=== PATIENT | male | born 1975 | race Caucasian/White ===

== ENCOUNTER 2018-11-26 01:56 | Observation (INO) ==
[2018-11-26] MEDS ORDERED: Ondansetron 4 MG/2 ML VIAL IVP PRN ×2 (04:48→16:53)
[2018-11-26] MEDS: *HR* FentaNYL (PF) 100 MCG/2 ML VIAL IVP PRN ×3 (05:05→13:11)
[2018-11-26] MEDS: 0.9 % Sodium Chloride 1,000 ML IVC SCH ×3 (05:06→18:14)
[2018-11-26] MEDS ORDERED: Piperacillin/Tazobactam 3.375 GM in 0.9 % Sodium Chloride Mini Bag 100 ML IVPB SCH (08:00)
--- NOTE | 2018-11-26 08:43 | Acute Care Surgery H&P ---
Date of Encounter: 11/26/18 Time of Encounter: 08:41 Assessment and Plan (1) Acute appendicitis Current Visit: Yes Status: Acute The assessment and plan as outlined above was discussed with the patient and/or family members who expressed understanding and agreement. All questions were answered. I explained to the patient that I personally reviewed his CT scan images and report which shows evidence of acute appendicitis. We will proceed with a lapao rscopic appendectomy today. Risks and benefits have been discussed with the patient and he agrees with the above plan. Qualifiers: Acute appendicitis type: with localized peritonitis Appendicitis gangrene presence: without gangrene Appendicitis perforation presence: without perforation Appendicitis abscess presence: without abscess Qualified Code(s): K35.30 - Acute appendicitis with localized peritonitis, without perforation or gangrene History of Present Illness Chief complaint: Right lower abdominal pain HPI: Mr. Moreira is a 43 year old male with no significant past medical history who states he started to have abdominal pain yesterday. He says the pain is sharp stabbing and continuous located in the right lower quadrant. He admits to nausea and vomiting but denies any diarrhea or constipation. Because of his continued pain he presented himself to [facility] emergency room where CT scan was performed showing evidence of acute appendicitis. Past Med Surg Social Fam HX - Past Medical History Medical history: asthma Psychiatric history: anxiety, depression - Social History Smoking Status: Never smoker Smokeless Tobacco Status: No Alcohol use: occasionally Drug use: none Medications and Allergies Albuterol Sulfate [Proventil Inhaler] 2 puff IH Q4HR PRN 11/25/18 [History] Buspirone HCl [Buspar] 15 mg PO BID 11/25/18 [History] Citalopram [CeleXA] 20 mg PO DAILY 11/25/18 [History] Pantoprazole Sodium [Protonix] 20 mg PO DAILY 11/25/18 [History] Sertraline [Zoloft] 25 mg PO DAILY 11/25/18 [History] Allergy/AdvReac Type Severity Reaction Status Date / Time No Known Allergies Allergy Verified 11/25/18 23:08 Review of Systems All systems PM: reviewed and no additional remarkable complaints except as stated All systems PM: The remainder of the systems were reviewed and are negative General Surgery Exam Initial Vital Signs Temp Pulse Resp BP Pulse Ox 99.9 F H 75 15 148/82 96 11/26/18 04:31 11/26/18 04:31 11/26/18 04:31 11/26/18 04:31 11/26/18 04:31 - Eyes PERRL, normal ocular movement - Respiratory normal expansion, normal respiratory effort, clear to auscultation - Cardiovascular Cardiovascular exam: Present: RRR, no murmurs/rubs/gallops - Abdomen Abdomen general surgery: Present: bowel sounds present, soft, tender (RIght lower abdominal pain) - Neurologic Present: CN 2-12 grossly intact - Musculoskeletal Present: other (No clubbing, cyanosis, or edema) Results - Labs All other labs normal. - Imaging CT scan - abdomen: report reviewed, image reviewed (CT scan images and report personally reviewed by me. Shows evidence of acute appendicitis. No free air or free fluid.)
[2018-11-26] MEDS ORDERED: *HR* FentaNYL (PF) 100 MCG/2 ML VIAL ONE (14:07)
[2018-11-26] MEDS ORDERED: *HR* Midazolam HCl 2 MG/2 ML VIAL ONE (14:07)
[2018-11-26] MEDS ORDERED: *HR* Propofol 200 MG/20 ML VIAL IVP ONE (14:07)
[2018-11-26] MEDS ORDERED: *HR* Rocuronium Bromide 50 MG/5 ML VIAL ONE (14:10)
[2018-11-26] MEDS ORDERED: Lidocaine HCL 4 ML Topical Solution (Laryng-O-Jet Kit Sterile Pak) TP ONE (14:10)
[2018-11-26] MEDS ORDERED: Lidocaine -MPF 2% 2 ML VIAL ONE (14:10)
[2018-11-26] MEDS ORDERED: Bupivacaine/EPI 1:200k 0.5%PF 30 ML VIAL ONE (14:14)
[2018-11-26] MEDS ORDERED: Acetaminophen IV 0 MG/0 ML INFUS..BTL ONE (14:18)
--- NOTE | 2018-11-26 14:49 | Anesthesia Evaluation PreOp ---
Date of Encounter: 11/26/18 Time of Encounter: 14:46 - Past History Planned Operation: Lap Appy Cardiac History: Hyperlipidemia Pulmonary History: Asthma, MAINOR Dx Other Medical History: GERD Anesthesia History: Past Anesthesia (Foot/Toe surgery) Alcohol Use: occasionally Drug use: none Medications and Allergies Albuterol Sulfate [Proventil Inhaler] 2 puff IH Q4HR PRN 11/25/18 [History] Buspirone HCl [Buspar] 15 mg PO BID 11/25/18 [History] Citalopram [CeleXA] 20 mg PO DAILY 11/25/18 [History] Pantoprazole Sodium [Protonix] 20 mg PO DAILY 11/25/18 [History] Sertraline [Zoloft] 25 mg PO DAILY 11/25/18 [History] Allergy/AdvReac Type Severity Reaction Status Date / Time No Known Allergies Allergy Verified 11/25/18 23:08 - Meds/Allergy Pre-op Review Medications Reviewed: Yes Allergies Reviewed: Yes Beta Blockers on Current Med List: No Anesthesia Results - Labs Laboratory Tests 11/25/18 11/25/18 23:16 23:16 WBC 16.4 H Hgb 16.0 Hct 45.4 Plt Count 200 Sodium 136 Potassium 3.5 Chloride 100 Carbon Dioxide 27 BUN 11 Creatinine 1.33 H Est GFR (Non-Af Amer) 59 L Glucose 179 H Anesthesia Exam Vital Signs Temp Pulse Resp BP Pulse Ox 11/26/18 07:10 99.9 F H 80 17 130/77 92 11/26/18 04:31 99.9 F H 75 15 148/82 96 Intake and Output 11/25/18 11/26/18 11/26/18 23:59 07:59 15:59 Intake Total 1000 / 1000 Balance 1000 / 1000 Intake: IV Fluids 1000 / 1000 0.9 % Sodium Chloride 1,000 ML 1000 / 1000 @ 125 mls/hr IVC .Q8H [facility] Rx#: [id number] Other: Weight 97.522 kg Blood Glucose* 145 Patient Weight 11/26/18 23:59 Weight 97.522 kg Height: 6' Weight: 251# BMI = 29.2 NPO (# of Hours): >24hrs. Last Emesis @ 0300 - HEENT Pupil (Motor): Pupils equal, EOMI Mallampati: II Teeth: Normal Oral Opening: Greater than 3 - ADMINISTRATIVE SERVICES DIRECTOR LOC: Oriented ADMINISTRATIVE SERVICES DIRECTOR Motor: Normal RUE, Normal LUE, Normal RLE, Normal LLE, Normal Face ADMINISTRATIVE SERVICES DIRECTOR Sensory: Normal: RUE, LUE, RLE, LLE, Face - Cardiac Rhythm: Regular Murmur: None - Pulmonary Breath Sounds: bilateral Clear Respiratory Effort: Symmetrical Anesthesia Assess/Plan ASA Score: 2 (MAINOR, chol, Asthma), E Level of consciousness: Cooperative, Oriented, Tranquil Anesthetic Plan: General Monitoring Plan: Standard Monitors Recovery Plan: PACU Anes Supervising Prov Stmt: Pt seen/evaluated, R&B Discussed, questions answered and consent obtained. Mike Muñiz MD
[2018-11-26] MEDS ORDERED: Ondansetron 4 MG/2 ML VIAL ONE (14:57)
[2018-11-26] MEDS ORDERED: Dexamethasone 4 MG/ML VIAL ONE (14:57)
[2018-11-26] MEDS ORDERED: Acetaminophen IV 1,000 MG/100 ML INFUS..BTL ONE (14:58)
--- NOTE | 2018-11-26 15:36 | Operative Note ---
Date of procedure: 11/26/18 Pre-op diagnosis: Acute appendicitis Post-op diagnosis: same Procedure: Laparoscopic appendectomy Anesthesia: GETA Surgeon: Ranjit Castillo Was there an vet assistant present: No Estimated blood loss (cc): 5 Specimen: appendix Condition: stable Disposition: PACU Procedure in Detail: Date of surgery: 11/26/18 After properly identifying the patient, the patient's abdomen was prepped and draped in a normal sterile fashion. After proper IV sedation was achieved followed by general endotracheal intubation, the patient's abdomen was prepped and draped in normal sterile fashion. A timeout was performed noting the patient's name and type of procedure to be performed. Half percent Marcaine with epinephrine was used to infiltrate the epidermal, dermal, and subcutaneous tissue just inferior to the umbilicus. An 11 blade scalpel was used to make an incision in this area down to the rectus fascia which was also incised. Once the abdomen was entered a 12 mm port was placed through the incision and the abdomen was insufflated with carbon dioxide. A laparoscopic camera was placed through the port which showed no injury to the intra-abdominal organs upon entry. A suprapubic 5 mm port left lower quadrant 5 mm port were then placed under direct camera visualization. The patient was placed in the left lateral side down position and the right lower quadrant was examined. The appendix was adherent to the abdominal wall and appeared to have a rim of purulence firmness exudate overlying the surface. The appendix was carefully dissected off the abdominal wall and retracted superiorly. A entire length of the appendix appeared to be thickened with a thickened mesentery. A laparoscopic LigaSure was then used to dissect through the mesentery of the appendix until the base of the appendix was encountered. The base appeared normal size and diameter and a laparoscopic ROGER stapler was then used to transect across the base of the appendix. The appendix was removed via an Endobag and reinspection of the staple line demonstrated maintenance of hemostasis. The right lower quadrant and pelvis were then copiously irrigated with normal saline solution and reinspection of the right lower quadrant once again demonstrated maintenance of hemostasis. All ports are then removed from the abdomen after the abdomen was desufflated. The rectus fascia for the subumbilical umbilical incision was reapproximated with a [id number] 0 Vicryl suture. The subcutis tissue was reapproximated with a 3-0 Vicryl suture and the epidermal and dermal layers for the remaining incisions were closed with 4-0 Monocryl sutures. Needle, sponge, and instrument counts were correct 2 and the incisions were covered with Steri-Strips and Band-Aids. The patient was aroused from IV sedation, extubated in the operating room without complication, and transported to the recovery room in stable condition.
[2018-11-26] MEDS ORDERED: Ringers Solution, Lactated 1,000 ML ONE (16:12)
[2018-11-26] MEDS ORDERED: Morphine Sulfate Oral CONC 10 MG/0.5 ML ORAL.SYG SL PRN (16:53)
--- NOTE | 2018-11-26 17:05 | Anesthesia Evaluation Post Op ---
Date of Encounter: 11/26/18 Time of Encounter: 16:20 - Vital Signs Vital Signs: Vital Signs Temp Pulse Resp BP Pulse Ox 11/26/18 16:24 98.8 F 92 12 103/74 93 11/26/18 16:14 93 14 108/68 93 11/26/18 16:04 98.7 F 95 14 104/65 94 11/26/18 15:54 94 12 102/69 94 11/26/18 15:44 94 14 108/68 94 11/26/18 15:34 101.3 F H 92 16 106/70 93 11/26/18 07:10 99.9 F H 80 17 130/77 92 11/26/18 04:31 99.9 F H 75 15 148/82 96 Intake and Output 11/26/18 11/26/18 11/26/18 07:59 15:59 23:59 Intake Total 1000 / 1000 Output Total 5 / 5 Balance 995 / 995 Intake: IV Fluids 1000 / 1000 0.9 % Sodium Chloride 1,000 ML 1000 / 1000 @ 125 mls/hr IVC .Q8H [facility] Rx#: [id number] Oral 0 / 0 Output: Urine 0 / 0 Estimated Blood Loss 5 / 5 Other: Meal NPO Percent of Meal Consumed 0% Weight 97.522 kg Blood Glucose* 145 Patient Weight 11/26/18 23:59 Weight 97.522 kg - Lungs Lungs: Clear Ascult./Percussion - Airway Airway: Non-obstructed - Cardiovascular Regular Rate, Baseline Rhythm - Mental Status Mental Status: Alert & Oriented, Answers Appropriately - Pain Pain Scale: 0 Pain Scale used: Numeric (1 - 10) - Nausea Vomiting Nausea Vomiting: Not Present - Hydration Hydration: Tolerates oral liquids, Able to void - Discharge PostOp Status: Discharge Patient to home Anes Supervising Prov Stmt: Pt seen/evaluated, VSS and has met criteria for discharge to home. - MD Mary Kay
[2018-11-26] MEDS: Ketorolac 30 MG/ML VIAL IVP SCH (18:14)
[2018-11-26] MEDS: Acetaminophen IV 1,000 MG/100 ML INFUS..BTL IVPB SCH (22:32)
[2018-11-27] MEDS ORDERED: Piperacillin/Tazobactam 3.375 GM in 0.9 % Sodium Chloride Mini Bag 100 ML IVPB SCH ×2 (01:14→17:00)
[2018-11-27] MEDS: Ketorolac 30 MG/ML VIAL IVP SCH ×2 (01:32→06:42)
[2018-11-27] MEDS: Acetaminophen IV 1,000 MG/100 ML INFUS..BTL IVPB SCH ×2 (05:05→07:42)
[2018-11-27 05:12] LABS: Hematocrit 40.4 % (37.5-50.1); Hemoglobin 13.5 g/dL (12.9-16.9); Immature Granulocytes % 0.9 % (0-4); Lymphocytes # 0.8 K/mcL (0.6-4.6); Lymphocytes % 5.5 %; Mean Corpuscular HGB Conc 33.4 g/dL (31.6-35.5); Mean Corpuscular Hemoglobin 30.1 pg (28.0-33.3); Mean Corpuscular Volume 90.2 fL (83.0-100.0); Mean Platelet Volume 11.4 fL (9.4-12.4); Monocytes # 0.7 K/mcL (0.0-1.3); Monocytes % 4.8 %; Neutrophils # 12.2 K/mcL (1.6-8.9); Platelet Count 148 K/mcL (140-400); Red Blood Count 4.48 M/mcL (4.19-5.50); Red Cell Distribution Width 12.4 % (11.5-14.5); Segmented Neutrophils % 88.8 %; White Blood Count 13.8 K/mcL (4.3-11.1)
[2018-11-27] MEDS: 0.9 % Sodium Chloride 1,000 ML IVC SCH (06:41)
[2018-11-27 08:47] VITALS: BP 107/70
--- NOTE | 2018-11-27 09:24 | Discharge Summary ---
<Sharron Barnard - Last Filed: 11/27/18 09:38> Orders not resulted at time of discharge: Pending orders 11/26/18 15:25 Surgical Pathology [PTH] Routine Date of Encounter: 11/27/18 Time of Encounter: 07:45 - Discharge Diagnosis (1) Acute appendicitis Priority: Primary Status: Resolved Qualifiers: Acute appendicitis type: with localized peritonitis Appendicitis gangrene presence: without gangrene Appendicitis perforation presence: without perforation Appendicitis abscess presence: without abscess Qualified Code(s): K35.30 - Acute appendicitis with localized peritonitis, without perforation or gangrene General Surgery Exam Initial Vital Signs Temp Pulse Resp BP Pulse Ox 99.9 F H 75 15 148/82 96 11/26/18 04:31 11/26/18 04:31 11/26/18 04:31 11/26/18 04:31 11/26/18 04:31 Vital Signs Temp Pulse Resp BP Pulse Ox 11/27/18 08:45 97.8 F 74 16 107/70 93 11/27/18 04:28 97.6 F 73 16 102/60 94 11/26/18 20:00 98.1 F 88 12 106/67 93 11/26/18 18:52 98.6 F 87 16 121/79 95 11/26/18 18:12 98.6 F 85 16 113/73 94 11/26/18 17:24 98.6 F 76 16 100/54 94 11/26/18 16:54 98.7 F 86 16 107/71 93 11/26/18 16:24 98.8 F 92 12 103/74 93 11/26/18 16:14 93 14 108/68 93 11/26/18 16:04 98.7 F 95 14 104/65 94 11/26/18 15:54 94 12 102/69 94 11/26/18 15:44 94 14 108/68 94 11/26/18 15:34 101.3 F H 92 16 106/70 93 Intake and Output 11/26/18 11/27/18 11/27/18 23:59 07:59 15:59 Intake Total 100 / 1100 200 / 700 500 / 700 Output Total 900 / 905 Balance -800 / 195 200 / 700 500 / 700 Intake: IV Fluids 100 / 1100 200 / 200 Ofirmev 1,000 mg/100 ml 1,000 100 / 100 100 / 100 mg In 100 ml @ 400 mls/hr IVPB Q6H [facility] Rx#:[id number] Zosyn 3.375 GM In 0.9 % Sodium 100 / 100 Chloride (Mini-Bag +) 100 ML @ 25 mls/hr IVPB Q8H [facility] Rx#: [id number] Oral 500 / 500 Output: Urine 900 / 900 Other: # Voids 1 Weight 101.1 kg Blood Glucose* 143 Patient Weight 11/27/18 23:59 Weight 101.1 kg - General physical appearance well developed, well nourished, no distress - Respiratory normal expansion, normal respiratory effort - Cardiovascular Cardiovascular exam: Present: RRR - Abdomen Abdomen general surgery: Present: bowel sounds present, soft, tender (Expected postoperative) - Incision Incision: Present: clean and dry, intact - Integumentary Integumentary general surgery: Present: warm and dry - Neurologic Present: normal coordination, normal sensation - Musculoskeletal Present: normal posture - Psychiatric Psychiatric general surgery: Present: A&Ox3 - Hospital Course Hospital course: Mr. Moreira is a 43 year old male who presented on 11/26/2018 with right lower quadrant pain. He was found to have acute appendicitis and taken to the operating room on the same day where he underwent an uncomplicated laparoscopic appendectomy. He is ambulating avoiding without difficulty, tolerating a diet without nausea or vomiting, vital signs are stable, and he is afebrile. We will begin discharge planning to home with a follow-up in approximately 2 weeks. - Time Spent with Patient Total time spent providing and/or coordinating discharge services: - Discharge Medications Prescriptions: New Amoxicillin/Clavulanate [Augmentin] 875 mg PO BIDWM 7 Days #14 tablet Docusate Sodium [Colace] 100 mg PO BID PRN #30 capsule PRN Reason: Contstipation Ibuprofen 800 mg PO Q8H PRN #30 tablet PRN Reason: Postsurgical pain OxyCODONE/APAP 5/325 [Percocet 5/325 MG] 1 each PO Q6HR PRN 5 Days #20 tablet PRN Reason: Pain Ondansetron ODT [Zofran ODT] 4 mg SL Q4HR PRN #15 tab.rapdis PRN Reason: Postsurgical nausea Continued Escitalopram [Lexapro] 20 mg PO DAILY Albuterol Sulfate [Proventil Inhaler] 2 puff IH Q4HR PRN PRN Reason: Shortness Of Breath Pantoprazole Sodium [Protonix] 20 mg PO DAILY Buspirone HCl [Buspar] 15 mg PO BID Home Medications: Albuterol Sulfate [Proventil Inhaler] 2 puff IH Q4HR PRN 11/25/18 [History] Buspirone HCl [Buspar] 15 mg PO BID 11/25/18 [History] Pantoprazole Sodium [Protonix] 20 mg PO DAILY 11/25/18 [History] Amoxicillin/Clavulanate [Augmentin] 875 mg PO BIDWM 7 Days #14 tablet 11/27/18 [Rx] Docusate Sodium [Colace] 100 mg PO BID PRN #30 capsule 11/27/18 [Rx] Escitalopram [Lexapro] 20 mg PO DAILY 11/27/18 [History] Ibuprofen 800 mg PO Q8H PRN #30 tablet 11/27/18 [Rx] Ondansetron ODT [Zofran ODT] 4 mg SL Q4HR PRN #15 tab.rapdis 11/27/18 [Rx] OxyCODONE/APAP 5/325 [Percocet 5/325 MG] 1 each PO Q6HR PRN 5 Days #20 tablet 11/27/18 [Rx] Allergies/Adverse Reactions: Allergy/AdvReac Type Severity Reaction Status Date / Time No Known Allergies Allergy Verified 11/25/18 23:08 Date of admission: 11/26/18 04:04 Primary care physician: PCP NONE Discharging clinician: Thmoas Erickson (Silvia Barnard, OLERICULTURIST-VALVE AND REGULATOR REPAIRER) Anticipated date of discharge: 11/27/18 Labs on day of discharge: Labs from last 24 hours 11/27/18 11/26/18 11/26/18 04:48 17:25 05:50 WBC 13.8 H RBC 4.48 Hgb 13.5 D Hct 40.4 MCV 90.2 MCH 30.1 MCHC 33.4 RDW 12.4 Plt Count 148 MPV 11.4 Immature Gran % 0.9 Seg Neutrophils % 88.8 Lymphocytes % 5.5 Monocytes % 4.8 Eosinophils % 0.0 Basophils % 0.0 Neutrophils # 12.2 H Lymphocytes # 0.8 Monocytes # 0.7 Eosinophils # 0.0 Basophils # 0.0 POC Glucose 143 H 145 H - Patient Status Disposition: Home, Self-Care Condition: Good Functional capacity at discharge: independent ambulation Overall status at discharge: patient is progressing back to baseline - Discharge Instructions Instructions: Laparoscopic Appendectomy (DC) Follow Up With: NONE,PCP [Primary Care Provider] - Sharron Barnard, VALVE AND REGULATOR REPAIRER [Advanced Practice Nurse] - 12/09/18 2:00 pm Forms: Inpatient Work/School Release Additional Instructions: General Surgical Discharge Instructions 1. No pushing, pulling, or lifting greater than 20 lbs for 2 weeks. 2. You may remove your dressings and shower beginning tomorrow, but no tub baths, soaking, or swimming for 2 weeks. 3. No driving for until Saturday, unless otherwise specified, and then you may resume driving when you are off narcotics and are safe to react in a car. 4. Apply ice 20 minutes every hour that you are awake to your abdomen and Take ibuprofen every 8 hours for discomfort. If this does not relieve discomfort, you may take the as needed Percocet. Eat a small snack with pain medication as this will help reduce the risk of nausea. Take narcotics as directed. Do not take more narcotics then directed and do not share your narcotics with any other person. Do not drink alcohol while on narcotics. You can take the Zofran/ondansetron if needed for nausea or with a dose of narcotics to prevent nausea. 5. Take stool softeners (Colace) or a water based laxative (Miralax) while taking narcotics. You may hold for loose stools. 6. Report any fevers greater than 100.5F, increase abdominal discomfort, drainage that looks like pus, increased redness or pain at the surgical site, or any vomiting. 7. Report any pain in the calves, shortness of breath, or rapid heartbeat. 8. Follow-up in the office as directed. 9. If you were prescribed antibiotics, do not stop them without talking to your provider. - Diet and Activity Activity: increase activity as tolerated Diet: advance to your usual diet <Thomas Erickson - Last Filed: 11/27/18 16:54> Orders not resulted at time of discharge: Pending orders 11/26/18 15:25 Surgical Pathology [PTH] Routine Date of Encounter: 11/27/18 General Surgery Exam Initial Vital Signs Temp Pulse Resp BP Pulse Ox 99.9 F H 75 15 148/82 96 11/26/18 04:31 11/26/18 04:31 11/26/18 04:31 11/26/18 04:31 11/26/18 04:31 - Hospital Course Hospital course: Mr. Moreira is a 43 year old male - Time Spent with Patient Total time spent providing and/or coordinating discharge services: Date of admission: 11/26/18 04:04 Primary care physician: PCP NONE Labs on day of discharge: Labs from last 24 hours 11/27/18 11/26/18 11/26/18 04:48 17:25 05:50 WBC 13.8 H RBC 4.48 Hgb 13.5 D Hct 40.4 MCV 90.2 MCH 30.1 MCHC 33.4 RDW 12.4 Plt Count 148 MPV 11.4 Immature Gran % 0.9 Seg Neutrophils % 88.8 Lymphocytes % 5.5 Monocytes % 4.8 Eosinophils % 0.0 Basophils % 0.0 Neutrophils # 12.2 H Lymphocytes # 0.8 Monocytes # 0.7 Eosinophils # 0.0 Basophils # 0.0 POC Glucose 143 H 145 H - Attending Attestation I have personally performed a face to face evaluation on this patient. I have reviewed and agree with the care plan. History and Exam by me shows: The patient is seen and evaluated on morning rounds with the acute care surgery team. The patient had laparoscopic appendectomy and has had a tremendous improvement in his symptoms. He is ready for discharge will be seen in the acute care surgery clinic 1-2 weeks. Thomas Erickson MD FACS
== END 2018-11-27 11:30 | disposition home or self-care (01) ==
LOC: 3ANU
PROVIDERS: ADMIT Surgery; ATTEND Surgery